=== PATIENT | female | born 1945 | race Caucasian/White ===

== ENCOUNTER 2017-03-07 10:28 | Day surgery (SDC) | payer MEDICARE ==
[~2017-03-07] VITALS: Ht 167.6 cm; Wt 92.9 kg
[~2017-03-07 10:28] MED LIST: ALEN70TA5 PO; ATEN25TA PO; METH5TAB6 PO; METO25TA35 PO; RANI150T8 PO
[2017-03-07] MEDS ORDERED: LACTATED RINGERS 1,000 ML IV SCH (10:53)
[2017-03-07 10:57] VITALS: BP 135/85
[2017-03-07] MEDS ORDERED: PROPOFOL 10 MG/ML, 50ML ONE (12:34)
== END 2017-03-07 14:25 | disposition home or self-care (01) ==
LOC: OUT 10:28
PROVIDERS: ATTEND Internal Medicine
DX: Z09 Encounter for follow-up examination after completed treatment for conditions other than malignant neoplasm (principal); Z86.010 Personal history of colon polyps; D12.0 Benign neoplasm of cecum; K57.30 Diverticulosis of large intestine without perforation or abscess without bleeding; K64.8 Other hemorrhoids; I10 Essential (primary) hypertension; E03.9 Hypothyroidism, unspecified; K21.9 Gastro-esophageal reflux disease without esophagitis; Z88.0 Allergy status to penicillin; Z88.2 Allergy status to sulfonamides; Z88.8 Allergy status to other drugs, medicaments and biological substances; Z79.899 Other long term (current) drug therapy
CPT/HCPCS: 45385; 88305; 93005; J2704; J7120